=== PATIENT | female | born 1960 | race Caucasian/White ===

== ENCOUNTER 2021-01-20 07:05 | Outpatient (CLI) | payer MEDICARE, OTHER | END 2021-01-20 23:59 | disposition home or self-care (01) | LOC: LAB 07:05 | PROVIDERS: ATTEND Surgery | DX: Z01.812 Encounter for preprocedural laboratory examination (principal); Z20.822 Contact with and (suspected) exposure to COVID-19 ==

== ENCOUNTER 2021-01-23 09:50 | Day surgery (SDC) | payer MEDICARE, OTHER ==
[2021-01-23] MEDS ORDERED: PROPOFOL 200 MG/20 ML BOTTLE IV ONE (09:51)
[2021-01-23 10:30] LABS: *BILIRUBIN,URIN NEGATIVE (NEGATIVE); *BLOOD, URINE NEGATIVE (NEGATIVE); *CLARITY,URINE SLIGHTLY CLOUDY (CLEAR); *COLOR,URINE YELLOW (YELLOW); *KETONES,URINE NEGATIVE (NEGATIVE); *UROBILINOGEN,URINE 0.2 E.U./dl (NORMAL); LEUKOCYTE ESTERASE ,URINE 1+ (NEGATIVE); NITRITE, URINE POSITIVE (NEGATIVE); PH,URINE 6.5 (5.0-8.0); UGLUCOSE NEGATIVE (NEGATIVE)
[2021-01-23 10:39] LABS: BACTERIA,URINE MANY /HPF (NONE SEEN); SQUAMOUS EPITHELIAL CELL,UR MANY /HPF (NONE SEEN)
[2021-01-23 10:45] LABS: MUCUS,URINE NONE SEEN /LPF (0-FEW); RBC,URINE NONE SEEN /HPF (0-3)
[2021-01-23] MEDS ORDERED: MIDAZOLAM HCL 2 MG/2 ML VIAL ONE (12:59)
[2021-01-23] MEDS ORDERED: FENTANYL CITRATE 100 MCG/2 ML AMPUL ONE (13:00)
== END 2021-01-23 15:10 | disposition home or self-care (01) ==
LOC: DS 09:50
PROVIDERS: ATTEND Surgery
DX: D50.9 Iron deficiency anemia, unspecified (principal); K58.9 Irritable bowel syndrome, unspecified; K63.89 Other specified diseases of intestine; K31.89 Other diseases of stomach and duodenum; I10 Essential (primary) hypertension; E78.2 Mixed hyperlipidemia; K21.9 Gastro-esophageal reflux disease without esophagitis; F06.4 Anxiety disorder due to known physiological condition; I65.23 Occlusion and stenosis of bilateral carotid arteries; I70.223 Atherosclerosis of native arteries of extremities with rest pain, bilateral legs; Z87.440 Personal history of urinary (tract) infections; Z85.3 Personal history of malignant neoplasm of breast; Z79.899 Other long term (current) drug therapy; Z98.890 Other specified postprocedural states; Z88.8 Allergy status to other drugs, medicaments and biological substances
CPT/HCPCS: 43239; 45380; 81001; 87086; J2250; J3010; 88313-TC; A4217; J3490